=== PATIENT | male | born 1985 | race Caucasian/White ===

== ENCOUNTER 2025-10-04 08:44 | Outpatient (CLI) | payer MEDICAID, SELFPAY ==
[2025-10-04 14:31] LABS: Strep A DNA Probe* NOT DETECTED (Not Detectd)
== END 2025-10-04 08:45 | disposition home or self-care (01) ==
PROVIDERS: Visit Provider Nurse Practitioner Family
DX: R13.10 Dysphagia, unspecified (principal); R22.1 Localized swelling, mass and lump, neck
CPT/HCPCS: 85025; 85651; 86140; 87651

== ENCOUNTER 2025-10-11 08:13 | Outpatient (CLI) | payer MEDICAID, SELFPAY | END 2025-10-11 08:14 | disposition home or self-care (01) | LOC: NFLDREF 10-16 11:13 | PROVIDERS: PCP Nurse Practitioner Family; Referring Provider Nurse Practitioner Family; Visit Provider Nurse Practitioner Family | DX: Z00.00 Encounter for general adult medical examination without abnormal findings (principal) | CPT/HCPCS: 80053; 80061; 84443 ==